=== PATIENT | female | born 1985 | race African-American/Black ===

== ENCOUNTER 2018-01-05 03:10 | Emergency (ER) | payer SELFPAY ==
[~2018-01-05] VITALS: Ht 172.7 cm; Wt 55.0 kg
[2018-01-05 03:16] VITALS: BP 105/71; PULSE 69; RESP 16; O2SAT 98
[2018-01-05 03:25] VITALS: RESP 16; O2SAT 98
--- NOTE | 2018-01-05 03:27 | PD ---
HPI Chief Complaint: Altered Mental Status Time Seen by Provider: 03:21 Travel History International Travel<30 days: No Contact w/Intl Traveler<30days: No Traveled to known affect area: No History of Present Illness HPI 32-year-old female was brought in by EMS for altered mental status. Patient was reportedly out drinking with her boyfriend. Patient became unresponsive subsequently. EMS was called. Patient was found to be lethargic. Narcan 0.4 mg IV given with increase in mentation. Patient arriving to the ED with lethargy. Patient's not verbalizing any complaint. PFSH Social History Tobacco Use: No Allergies-Medications (Allergen,Severity, Reaction): Coded Allergies: No Known Allergies (Verified Allergy, Unknown, 01/05/18) Reported Meds & Prescriptions Reported Meds & Active Scripts Active No Active Prescriptions or Reported Medications Review of Systems General / Constitutional: No: Fever Eyes: No: Visual changes HENT: No: Headaches Cardiovascular: No: Chest Pain or Discomfort Respiratory: No: Shortness of Breath Gastrointestinal: No: Abdominal Pain Genitourinary: No: Dysuria Musculoskeletal: No: Pain Skin: No Rash Neurologic: No: Weakness Psychiatric: No: Depression Endocrine: No: Polydipsia Hematologic/Lymphatic: No: Easy Bruising Physical Exam Narrative GENERAL: Well-nourished, well-developed patient. SKIN: Focused skin assessment warm/dry. HEAD: Normocephalic. EYES: No scleral icterus. No injection or drainage. Pupil 2 mm equal reactive. NECK: Supple, trachea midline. No JVD or lymphadenopathy. No meningismus CARDIOVASCULAR: Regular rate and rhythm without murmurs, gallops, or rubs. RESPIRATORY: Breath sounds equal bilaterally. No accessory muscle use. GASTROINTESTINAL: Abdomen soft, non-tender, nondistended. MUSCULOSKELETAL: No cyanosis, or edema. BACK: Nontender without obvious deformity. No CVA tenderness. Neurologic exam: Patient is lethargic. Patient responded to painful stimuli. Patient breathing on her own. Patient moved extremity minimally on command. No obvious focal neurological deficit. Data Data Last Documented VS Vital Signs Date Time Temp Pulse Resp B/P (MAP) Pulse Ox O2 Delivery O2 Flow Rate FiO2 01/05/18 09:50 01/05/18 08:30 80 19 97 Room Air Orders Orders Electrocardiogram (01/05/18 03:21) Complete Blood Count With Diff (01/05/18 03:21) Comprehensive Metabolic Panel (01/05/18 03:21) Chest, Single Ap (01/05/18 03:21) Iv Access Insert/Monitor (01/05/18 03:21) Ecg Monitoring (01/05/18 03:21) Oximetry (01/05/18 03:21) Ed Urine Pregnancytest Poc (01/05/18 03:21) Alcohol (Ethanol) (01/05/18 03:21) Ondansetron Inj (Zofran Inj) (01/05/18 09:00) Oral Rehydration (01/05/18 08:53) Ed Discharge Order (01/05/18 10:06) Labs Laboratory Tests Test 01/05/18 03:27 White Blood Count 7.5 TH/MM3 Red Blood Count 4.23 MIL/MM3 Hemoglobin 12.9 GM/DL Hematocrit 38.6 % Mean Corpuscular Volume 91.2 FL Mean Corpuscular Hemoglobin 30.5 PG Mean Corpuscular Hemoglobin Concent 33.5 % Red Cell Distribution Width 13.8 % Platelet Count 208 TH/MM3 Mean Platelet Volume 7.1 FL Neutrophils (%) (Auto) 59.1 % Lymphocytes (%) (Auto) 27.5 % Monocytes (%) (Auto) 11.0 % Eosinophils (%) (Auto) 1.9 % Basophils (%) (Auto) 0.5 % Neutrophils # (Auto) 4.4 TH/MM3 Lymphocytes # (Auto) 2.1 TH/MM3 Monocytes # (Auto) 0.8 TH/MM3 Eosinophils # (Auto) 0.1 TH/MM3 Basophils # (Auto) 0.0 TH/MM3 CBC Comment DIFF FINAL Differential Comment Blood Urea Nitrogen 15 MG/DL Creatinine 0.69 MG/DL Random Glucose 86 MG/DL Total Protein 7.8 GM/DL Albumin 4.3 GM/DL Calcium Level 8.9 MG/DL Alkaline Phosphatase 52 U/L Aspartate Amino Transf (AST/SGOT) 23 U/L Alanine Aminotransferase (ALT/SGPT) 29 U/L Total Bilirubin 0.2 MG/DL Sodium Level 143 MEQ/L Potassium Level 3.5 MEQ/L Chloride Level 110 MEQ/L Carbon Dioxide Level 23.6 MEQ/L Anion Gap 9 MEQ/L Estimat Glomerular Filtration Rate 97 ML/MIN Ethyl Alcohol Level 114 MG/DL [facility] Medical Decision Making Medical Screen Exam Complete: Yes Emergency Medical Condition: Yes Differential Diagnosis Differential diagnosis including drug overdose, intoxication, electrolyte imbalance, TIA, CVA, sepsis. Narrative Course 32-year-old female with altered mental status. Patient responded minimally to Narcan. Scripts No Active Prescriptions or Reported Meds Bryan Pelletier MD Jan 05, 2018 03:27
[2018-01-05 03:39] LABS: AUTOMATED NEUTROPHIL # 4.4 TH/MM3 (1.8-7.7); BASOPHIL % 0.5 % (0.0-2.0); EOSINOPHIL # 0.1 TH/MM3 (0-0.4); EOSINOPHIL % 1.9 % (0.0-4.0); HEMATOCRIT 38.6 % (35.0-46.0); HEMOGLOBIN 12.9 GM/DL (11.6-15.3); LYMPH % 27.5 % (9.0-44.0); LYMPHOCYTE # 2.1 TH/MM3 (1.0-4.8); MEAN CELL VOLUME 91.2 FL (80.0-100.0); MEAN CORPUSCULAR HEMOGLOBIN 30.5 PG (27.0-34.0); MEAN CORPUSCULAR HGB CONC 33.5 % (32.0-36.0); MEAN PLATELET VOLUME 7.1 FL (7.0-11.0); MONOCYTE # 0.8 TH/MM3 (0-0.9); NEUT % 59.1 % (16.0-70.0); PLATELET COUNT 208 TH/MM3 (150-450); RED BLOOD COUNT 4.23 MIL/MM3 (4.00-5.30); RED CELL DISTRIBUTION WIDTH 13.8 % (11.6-17.2); WHITE BLOOD COUNT 7.5 TH/MM3 (4.0-11.0)
[2018-01-05 03:52] LABS: ALBUMIN 4.3 GM/DL (3.4-5.0); ALT (GPT) 29 U/L (10-53); AST (GOT) 23 U/L (15-37); BICARBONATE 23.6 MEQ/L (21.0-32.0); BLOOD UREA NITROGEN 15 MG/DL (7-18); CALCIUM 8.9 MG/DL (8.5-10.1); CHLORIDE 110 MEQ/L (98-107); CREATININE 0.69 MG/DL (0.50-1.00); GLOMERULAR FILTRATION RATE 97 ML/MIN (>89); GLUCOSE,RANDOM 86 MG/DL (74-106); SODIUM (NA) 143 MEQ/L (136-145)
[2018-01-05 03:53] LABS: ALKALINE PHOSPHATASE 52 U/L (45-117); TOTAL BILIRUBIN ADULT 0.2 MG/DL (0.2-1.0); TOTAL PROTEIN 7.8 GM/DL (6.4-8.2)
--- NOTE | 2018-01-05 03:53 | RADRPT ---
EXAM DATE/TIME: 01/05/2018 03:25 [place] COMPARISON: No previous studies available for comparison. INDICATIONS : Shortness of breath, possible altered mental status. MEDICAL HISTORY : Unobtainable. SURGICAL HISTORY : Unobtainable. ENCOUNTER: Initial ACUITY: 1 day PAIN SCORE: Non-responsive. LOCATION: Bilateral chest FINDINGS: A single view of the chest demonstrates the lungs to be symmetrically aerated without evidence of mas s, infiltrate or effusion. The cardiomediastinal contours are unremarkable. Osseous structures are intact. CONCLUSION: The lungs are clear. Perez Hummel MD on January 05, 2018 at 3:52 Board Certified Radiologist. This report was verified electronically.
[2018-01-05 05:18] VITALS: BP 94/58; PULSE 70; RESP 16; O2SAT 100
[2018-01-05 08:30] VITALS: BP 99/64; PULSE 80; RESP 19; O2SAT 97
[2018-01-05] MEDS ORDERED: ONDANSETRON HCL 4 MG/2 ML VIAL IV PUSH ONE (09:00)
--- NOTE | 2018-01-05 09:05 | EKG ---
Date Performed: 01/05/2018 Time Performed: 03:38:38 PTAGE: 32 years EKG: Sinus rhythm POSSIBLE LEFT ATRIAL ENLARGEMENT POSSIBLE RIGHT VENTRICULAR CONDUCTION DELAY BORDERLINE ECG NO PREVIOUS TRACING DOCTOR: Chino Alvarez Interpretating Date/Time 01/05/2018 09:02:54
--- NOTE | 2018-01-05 10:14 | PD ---
Data Data Last Documented VS Vital Signs Date Time Temp Pulse Resp B/P (MAP) Pulse Ox O2 Delivery O2 Flow Rate FiO2 01/05/18 09:50 01/05/18 08:30 80 19 97 Room Air Orders Orders Electrocardiogram (01/05/18 03:21) Complete Blood Count With Diff (01/05/18 03:21) Comprehensive Metabolic Panel (01/05/18 03:21) Chest, Single Ap (01/05/18 03:21) Iv Access Insert/Monitor (01/05/18 03:21) Ecg Monitoring (01/05/18 03:21) Oximetry (01/05/18 03:21) Ed Urine Pregnancytest Poc (01/05/18 03:21) Drug Screen, Random Urine (01/05/18 03:21) Alcohol (Ethanol) (01/05/18 03:21) Ondansetron Inj (Zofran Inj) (01/05/18 09:00) Oral Rehydration (01/05/18 08:53) Ed Discharge Order (01/05/18 10:06) Labs Laboratory Tests Test 01/05/18 03:27 White Blood Count 7.5 TH/MM3 Red Blood Count 4.23 MIL/MM3 Hemoglobin 12.9 GM/DL Hematocrit 38.6 % Mean Corpuscular Volume 91.2 FL Mean Corpuscular Hemoglobin 30.5 PG Mean Corpuscular Hemoglobin Concent 33.5 % Red Cell Distribution Width 13.8 % Platelet Count 208 TH/MM3 Mean Platelet Volume 7.1 FL Neutrophils (%) (Auto) 59.1 % Lymphocytes (%) (Auto) 27.5 % Monocytes (%) (Auto) 11.0 % Eosinophils (%) (Auto) 1.9 % Basophils (%) (Auto) 0.5 % Neutrophils # (Auto) 4.4 TH/MM3 Lymphocytes # (Auto) 2.1 TH/MM3 Monocytes # (Auto) 0.8 TH/MM3 Eosinophils # (Auto) 0.1 TH/MM3 Basophils # (Auto) 0.0 TH/MM3 CBC Comment DIFF FINAL Differential Comment Blood Urea Nitrogen 15 MG/DL Creatinine 0.69 MG/DL Random Glucose 86 MG/DL Total Protein 7.8 GM/DL Albumin 4.3 GM/DL Calcium Level 8.9 MG/DL Alkaline Phosphatase 52 U/L Aspartate Amino Transf (AST/SGOT) 23 U/L Alanine Aminotransferase (ALT/SGPT) 29 U/L Total Bilirubin 0.2 MG/DL Sodium Level 143 MEQ/L Potassium Level 3.5 MEQ/L Chloride Level 110 MEQ/L Carbon Dioxide Level 23.6 MEQ/L Anion Gap 9 MEQ/L Estimat Glomerular Filtration Rate 97 ML/MIN Ethyl Alcohol Level 114 MG/DL [facility] Medical Record Reviewed: Yes Supervised Visit with JOSE: No Narrative Course Patient demonstrates clinical sobriety at approximately 8:30 AM. She is ready for discharge. CBC & BMP Diagram 01/05/18 03:27 Total Protein 7.8, Albumin 4.3, Calcium Level 8.9, Alkaline Phosphatase 52, Aspartate Amino Transf (AST/SGOT) 23, Alanine Aminotransferase (ALT/SGPT) 29, Total Bilirubin 0.2 Diagnosis Primary Impression: Alcohol intoxication Qualified Codes: F10.929 - Alcohol use, unspecified with intoxication, unspecified Med/Other Pt SpecificInfo: No Change to Meds Scripts No Active Prescriptions or Reported Meds Disposition: DISCHARGE HOME Condition: Stable Reji Greene MD Jan 05, 2018 10:14
== END 2018-01-05 10:20 | disposition home or self-care (01) ==
LOC: NEPE 03:10
DX: F10.929 Alcohol use, unspecified with intoxication, unspecified (principal); Y90.5 Blood alcohol level of 100-119 mg/100 ml; R06.02 Shortness of breath
CPT/HCPCS: 71045; 80053; 80307; 84703; 85025; 93005; 96374; 99285; J2405

== ENCOUNTER 2018-01-30 00:41 | Emergency (ER) | payer SELFPAY | END 2018-01-30 01:26 | disposition left against medical advice (07) | LOC: NED 00:41 | DX: R07.9 Chest pain, unspecified (principal); Z53.21 Procedure and treatment not carried out due to patient leaving prior to being seen by health care provider | CPT/HCPCS: 99281 ==

== ENCOUNTER 2018-02-23 17:05 | Emergency (ER) | payer SELFPAY ==
[~2018-02-23] VITALS: Ht 172.7 cm; Wt 63.0 kg
[2018-02-23 17:24] VITALS: BP 95/54; PULSE 79; RESP 16; TEMP 98.2; O2SAT 97
[2018-02-23 17:58] VITALS: BP 102/62; PULSE 68; RESP 20; O2SAT 100
[2018-02-23] MEDS ORDERED: predniSONE 50 MG TAB PO ONE (18:00)
[2018-02-23] MEDS ORDERED: diphenhydrAMINE HCL 50 MG CAP PO ONE (18:00)
--- NOTE | 2018-02-23 18:09 | PD ---
HPI Chief Complaint: Allergic/Adverse Reaction Time Seen by Provider: 17:55 Travel History International Travel<30 days: No Contact w/Intl Traveler<30days: No Traveled to known affect area: No History of Present Illness HPI 32yo F with no significant PMH presents to the ED with c/o generalized itching after eating Kiwi 2 days ago. Said her throat feels sore but no throat, lip or tongue swelling. Denies any chest pain, sob, n/v, abdominal pain. PFSH Past Medical History Medical History: Denies Significant Hx Diminished Hearing: No ?: Not : 3 Para: 1 Social History Alcohol Use: No (DENIES) Tobacco Use: No Substance Use: No Allergies-Medications (Allergen,Severity, Reaction): Coded Allergies: No Known Allergies (Verified Allergy, Unknown, 02/23/18) Reported Meds & Prescriptions Reported Meds & Active Scripts Active No Active Prescriptions or Reported Medications Review of Systems Except as stated in HPI: all other systems reviewed are Neg Physical Exam Narrative GENERAL: 32yo F in mild distress. SKIN: Focused skin assessment warm/dry. HEAD: Atraumatic. Normocephalic. EYES: Pupils equal and round. No scleral icterus. No injection or drainage. ENT: Throat: Uvula midline. No uvula edema, no lip or tongue edema. NECK: Trachea midline. No JVD. CARDIOVASCULAR: Regular rate and rhythm. No murmur appreciated. RESPIRATORY: No accessory muscle use. Clear to auscultation. Breath sounds equal bilaterally. GASTROINTESTINAL: Abdomen soft, non-tender, nondistended. MUSCULOSKELETAL: No obvious deformities. No clubbing. No cyanosis. No edema. NEUROLOGICAL: Awake and alert. No obvious cranial nerve deficits. Motor grossly within normal limits. Normal speech. PSYCHIATRIC: Appropriate mood and affect; insight and judgment normal. Data Data Last Documented VS Vital Signs Date Time Temp Pulse Resp B/P (MAP) Pulse Ox O2 Delivery O2 Flow Rate FiO2 02/23/18 17:58 68 20 102/62 (75) 100 Room Air 02/23/18 17:24 98.2 Orders Orders Diphenhydramine (Benadryl) (02/23/18 18:00) Prednisone (Deltasone) (02/23/18 18:00) MDM Medical Decision Making Medical Screen Exam Complete: Yes Emergency Medical Condition: Yes Differential Diagnosis Possible allergic reaction to kiwi Narrative Course 32yo F here with generalized itching for 2 days. Said she ate kiwi prior to symptoms. No signs of anaphylaxis. Do not see urticaria but pt said she is itchy. Did not take any medications at home. Will give diphenhydramine and prednisone. Pt reevaluated at bedside and feels better. Pt wants to go home. Return precautions given. Diagnosis Primary Impression: Allergic reaction Qualified Codes: T78.40XA - Allergy, unspecified, initial encounter Patient Instructions: General Instructions Departure Forms: Tests/Procedures Additional Instructions: Please follow up with your primary care physician in 2-3 days. Return to the ED if symptoms worsen. Med/Other Pt SpecificInfo: Prescription(s) given Scripts Epinephrine Inj (Epipen 2-Miguel Inj) 0.3 Mg/0.3 Ml Pfpen 0.3 MG IM ONCE Y for ALLERGIC REACTION, #1 PACK 0 Refills Prov: Claribel Baxter DO 02/23/18 Diphenhydramine (Diphenhydramine) 25 Mg Tab 25 MG PO Q6H Y for ITCHING for 5 Days, #20 TAB 0 Refills Prov: Claribel Baxter DO 02/23/18 Prednisone (Prednisone) 50 Mg Tab 50 MG PO DAILY for 5 Days, #5 TAB 0 Refills Prov: Claribel Baxter DO 02/23/18 Disposition: 01 DISCHARGE HOME Condition: Stable Claribel Baxter DO Feb 23, 2018 18:09
[2018-02-23] MEDS ORDERED: EPIP0.3I IM (19:03)
[2018-02-23] MEDS ORDERED: PRED50 PO (19:03)
[2018-02-23] MEDS ORDERED: DIPH25TA2 PO (19:03)
== END 2018-02-23 19:16 | disposition home or self-care (01) ==
LOC: NEPE 17:05
DX: T78.40XA Allergy, unspecified, initial encounter (principal)
CPT/HCPCS: 99283; J7512; Q0163

== ENCOUNTER 2018-04-17 09:56 | Emergency (ER) | payer SELFPAY ==
[~2018-04-17] VITALS: Ht 172.7 cm; Wt 62.5 kg
[~2018-04-17 09:56] MED LIST: DIPH25TA2 PO; EPIP0.3I IM; PRED50 PO
[2018-04-17 10:19] VITALS: BP 124/65; PULSE 88; RESP 16; TEMP 97.8; O2SAT 100
[2018-04-17] MEDS ORDERED: KETOROLAC TROMETHAMINE 60 MG/2 ML (IM) VIAL IM ONE (11:00)
[2018-04-17] MEDS ORDERED: LIDOCAINE HCL 1% 50 ML VIAL XX ONE (11:00)
[2018-04-17] MEDS ORDERED: cefTRIAXone 250 MG VIAL IM ONE (11:00)
[2018-04-17] MEDS: LIDOCAINE HCL 1% PF 30 ML VIAL ONE ×2 (11:14→11:25)
[2018-04-17 11:17] LABS: BILIRUBIN, URINE NEG (NEG); BLOOD, URINE MOD (NEG); GLUCOSE,URINE NEG (NEG); KETONE, URINE 40 mg/dL (NEG); MUCUS URINE FEW /lpf (OCC); NITRITE,URINE NEG (NEG); URINE COLOR YELLOW (YELLW/STRAW); URINE LEUKOCYTE ESTERASE NEG (NEG)
[2018-04-17] MEDS ORDERED: METR-1 PO (11:29)
[2018-04-17] MEDS ORDERED: DOXY100C PO (11:29)
[2018-04-17] MEDS ORDERED: IBUP1TAB7 PO (11:29)
[2018-04-17] MEDS ORDERED: LIDOCAINE HCL 1% 30 ML VIAL OTHER ONE (11:30)
--- NOTE | 2018-04-17 11:30 | PD ---
HPI . Abdominal pain Chief Complaint: Abdominal Pain Time Seen by Provider: 10:19 Travel History International Travel<30 days: No Contact w/Intl Traveler<30days: No Traveled to known affect area: No History of Present Illness HPI This patient presents with chief complaint of lower abdominal pain. Onset was 1 week ago. Associated symptoms include nausea, vomiting and vaginal discharge. She rates her pain at 5/10. She states she has not been recently sexually active so she cannot comment on dyspareunia. She states that her vaginal discharge is white. In addition, she has dysuria. [facility] Past Medical History Medical History: Denies Significant Hx Diminished Hearing: No Tetanus Vaccination: > 5 Years Influenza Vaccination: No ?: Unknown LMP: 03/18/18 : 3 Para: 1 Miscarriage: 2 Social History Alcohol Use: No (DENIES) Tobacco Use: No (QUIT 1 MONTHS AGO) Substance Use: No Allergies-Medications (Allergen,Severity, Reaction): Coded Allergies: No Known Allergies (Verified Allergy, Unknown, 04/17/18) Reported Meds & Prescriptions Reported Meds & Active Scripts Active No Active Prescriptions or Reported Medications Review of Systems Except as stated in HPI: all other systems reviewed are Neg Physical Exam Narrative GENERAL: Awake and alert and in no acute distress. SKIN: warm/dry. HEAD: Normocephalic. Atraumatic. EYES: Pupils equal and round. Extraocular movements are intact. ENT: Mucous membranes pink and moist. NECK: Supple. Full range of motion without pain.. CARDIOVASCULAR: Regular rate and rhythm. RESPIRATORY: No accessory muscle use. Clear to auscultation. Breath sounds equal bilaterally. GASTROINTESTINAL: Abdomen soft. Suprapubic tenderness. Bowel sounds present. Nondistended. : Normal female. Scant discharge in the vaginal vault. Cervical loss is closed. Positive cervical motion tenderness and bilateral adnexal tenderness. No masses palpated MUSCULOSKELETAL: No obvious deformities. Normal muscle tone. NEUROLOGICAL: Awake and alert. No obvious cranial nerve deficits. Motor grossly within normal limits. Normal speech. PSYCHIATRIC: Appropriate mood and affect; insight and judgment normal. Data Data Last Documented VS Vital Signs Date Time Temp Pulse Resp B/P (MAP) Pulse Ox O2 Delivery O2 Flow Rate FiO2 04/17/18 10:20 16 04/17/18 10:19 97.8 88 124/65 (84) 100 Orders Orders Gc And Chlamydia Pcr (04/17/18 10:19) Wet Prep Profile (04/17/18 10:19) Urinalysis - C+S If Indicated (04/17/18 10:19) Cath For Specimen (04/17/18 10:19) Ed Urine Pregnancytest Poc (04/17/18 10:19) Ceftriaxone Inj (Rocephin Inj) (04/17/18 11:00) Ketorolac Inj (Toradol Inj) (04/17/18 11:00) Lidocaine Pf 1% Inj (Xylocaine-Mpf 1% In (04/17/18 11:14) Lidocaine 1% Inj (Xylocaine 1% Inj) (04/17/18 11:30) Labs Laboratory Tests Test 04/17/18 10:52 Urine Color YELLOW Urine Turbidity CLEAR Urine pH 6.0 Urine Specific [place] 1.030 Urine Protein TRACE mg/dL Urine Glucose (UA) NEG mg/dL Urine Ketones 40 mg/dL Urine Occult Blood MOD Urine Nitrite NEG Urine Bilirubin NEG Urine Urobilinogen 2.0 MG/DL Urine Leukocyte Esterase NEG Urine RBC 6 /hpf Urine WBC LESS THAN 1 /hpf Urine Mucus FEW /lpf Microscopic Urinalysis Comment CULT NOT INDICATED MDM Medical Decision Making Medical Screen Exam Complete: Yes Emergency Medical Condition: Yes Differential Diagnosis Differential diagnosis of pelvic pain includes but is not limited to UTI, PID, ectopic , spontaneous AB, constipation, viral illness Narrative Course This patient presents with a one-week history of pelvic pain. She has PID on exam. Her hCG is negative. Her UA is negative. She has been treated in the emergency department with IM Rocephin and IM Toradol. She will be discharged home with prescriptions for doxycycline and Flagyl. I will also give her a prescription for ibuprofen. Diagnosis Primary Impression: Pelvic inflammatory disease Patient Instructions: General Instructions, Pelvic Inflammatory Disease (DC) Med/Other Pt SpecificInfo: Prescription(s) given Scripts Ibuprofen (Ibuprofen) 800 Mg Tab 800 MG PO Q8H Y for Pain/Inflammation, #60 TAB 0 Refills Prov: Valerie Bustamante MD 04/17/18 Metronidazole (Flagyl) 500 Mg Tab 500 MG PO BID for Infection for 7 Days, #14 TAB 0 Refills Prov: Valerie Bustamante MD 04/17/18 Doxycycline Hyclate (Doxycycline Hyclate) 100 Mg Cap 100 MG PO BID for Infection, #20 CAP 0 Refills Prov: Valerie Bustamante MD 04/17/18 Disposition: 01 DISCHARGE HOME Condition: Stable Valerie Bustamante MD Apr 17, 2018 11:30
[2018-04-17 12:00] VITALS: BP 124/81; TEMP 97.8
== END 2018-04-17 12:00 | disposition home or self-care (01) ==
LOC: NEPE 09:56
DX: N73.9 Female pelvic inflammatory disease, unspecified (principal); N89.8 Other specified noninflammatory disorders of vagina; R11.2 Nausea with vomiting, unspecified; R30.0 Dysuria; Z87.891 Personal history of nicotine dependence
CPT/HCPCS: 81001; 84703; 87210; 87491; 87591; 96372; 99283; J0696; J1885; P9612